=== PATIENT | female | born 1980 | race Caucasian/White ===

== ENCOUNTER 2019-08-13 02:13 | Emergency (ER) | payer MEDICAID ==
[~2019-08-13] VITALS: Ht 162.6 cm; Wt 61.0 kg
[2019-08-13 02:17] VITALS: BP 132/78
[2019-08-13 05:29] LABS: *AMPHETAMINES SCREEN URINE NEGATIVE (NEGATIVE); *BARBITURATES SCREEN URINE NEGATIVE (NEGATIVE); *BENZODIAZEPINES SCREEN URINE NEGATIVE (NEGATIVE); *COCAINE SCREEN URINE NEGATIVE (NEGATIVE); CANNABINOID URINE SCREEN NEGATIVE (NEGATIVE); METHADONE URINE SCREEN NEGATIVE (NEGATIVE); OPIATES URINE SCREEN NEGATIVE (NEGATIVE); PHENCYCLIDINE URINE SCREEN NEGATIVE (NEGATIVE)
== END 2019-08-13 13:38 | disposition home or self-care (01) ==
LOC: ER 02:13
DX: R69 Illness, unspecified (principal); Z59.0 Homelessness; F31.9 Bipolar disorder, unspecified; F20.9 Schizophrenia, unspecified
CPT/HCPCS: 80305; 99283